=== PATIENT | male | born 1955 | race Caucasian/White ===

== ENCOUNTER 2017-03-13 18:32 | Emergency (ER) | payer BC ==
[2017-03-13] MEDS ORDERED: NS 1000 ML 1,000 ML ONE ×2 (18:40→19:48)
[2017-03-13 18:42] VITALS: BMI 30.5
[2017-03-13] MEDS: NS 1000 ML 1,000 ML IV ONE ×2 (18:47→19:52)
[2017-03-13 18:54] LABS: BASOPHILS # (AUTO) 0.1 X10^3/uL (0.0-0.1); BASOPHILS % (AUTO) 1.2 % (0.2-1.0); EOSINOPHILS # (AUTO) 0.4 x10^3/uL (0.0-0.2); EOSINOPHILS % (AUTO) 3.6 % (0.9-2.9); HEMATOCRIT 43.2 % (42.0-54.0); HEMOGLOBIN 14.6 g/dL (13.5-18.0); LYMPHOCYTES # (AUTO) 2.5 X10^3/uL (1.3-2.9); LYMPHOCYTES % (AUTO) 24.9 % (21.0-51.0); MEAN CORPUSCULAR HEMOGLOBIN 30.9 pg (27.0-34.0); MEAN CORPUSCULAR HGB CONC 33.7 g/dL (33.0-35.0); MEAN CORPUSCULAR VOLUME 91.8 fL (80.0-100.0); MEAN PLATELET VOLUME 8.9 fL (7.4-11.0); MONOCYTES # (AUTO) 0.7 x10^3/uL (0.3-0.8); MONOCYTES % (AUTO) 6.7 % (0.0-13.0); NEUTROPHILS # (AUTO) 6.4 x10^3/uL (2.2-4.8); NEUTROPHILS % (AUTO) 63.6 % (42.0-75.0); PLATELET COUNT 229 X10^3/uL (150.0-450.0); RED CELL DISTRIBUTION WIDTH 13.4 % (11.6-16.5)
--- NOTE | 2017-03-13 18:57 | DR.GENAD ---
HPI - PCP Primary Care Physician: DARCIE - Complaint/Symptoms Chief Complaint Doctors Comments: Patient states that he has been in atrial flutter since yesterday; today did not take his medication. 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 STARR AT [facility] - Source History Provided: Patient - Mode of Arrival Mode of Arrival: Ambulatory - Timing Onset of Chief Complaint: 03/13/17 PMH - PMH Past Medical History: Yes Past Medical History: COPD, Coronary Artery Disease, Dyslipidemia, GERD, Hypertension Past Surgical History: Yes Surgical History: Angioplasty/Stents, Tonsillectomy, Other - Family History History of Family Medical Conditions: Yes Family Medical History: Cancer, [place], Hypertension - Social History Alcohol Use: None Do you use any recreational Drugs:: No Lives With: Family Lives Where: Home - infectious screening In the last 2 months have you had wt loss of >10#?: NO Have you had fever, night sweats or hemotysis?: No Have you traveled outside the country in the last 6 months?: No Isolation: Standard ROS - Review of Systems Eyes: No Symptoms Reported ENTM: No Symptoms Reported Respiratoy: No Symptoms Reported Cardiovascular: No Symptoms Reported Gastrointestinal/Abdominal: No Symptoms Reported Genitourinary: No Symptoms Reported Neurological: No Symptoms Reported Musculoskeletal: No Symptoms Reported Integumentary: No Symptoms Reported Hematologic/Lymphatic: No Symptoms Reported Endocrine: No Symptoms Reported Psychiatric: No Symptoms Reported All Other Systems: Reviewed and Negative PE - Vital Signs Vitals: Temperature 96.7 F Pulse Rate 128 Respiratory Rate 18 Blood Pressure [Right Arm] 164/88 Blood Pressure 152/83 O2 Sat by Pulse Oximetry 99 - General Limitations: negative: Altered Mental Status General Appearance: Alert, In No Apparent Distress - Head Head Exam: Normal Inspection, Atraumatic - Eyes Eye exam: Normal Appearance, PERRL, EOMI - Neck Neck Exam: Normal Inspection, Full ROM - Chest Chest Inspection: Normal Inspection - Respiratory Respiratory Exam: Normal Lung Sounds Bilat Respiratory Exam: Bilateral Clear to Auscultation - Cardiovascular Cardiovascular Exam: Regular Rate, Normal Rhythm - Abdominal Exam Abdominal Exam: Normal Inspection, Normal Bowel Sounds Abdominal Tenderness: negative: RUQ, RLQ, LUQ, LLQ, Epigastrium, Suprapubic, Diffuse, Mild, Moderate, Severe, Other - Extremities Extremities Exam: Normal Inspection, Full ROM - Back Back Exam: Normal Inspection - Neurologic Neurological Exam: Alert, Oriented X3, CN II-XII Intact - Psychiatric Psychiatric Exam: Normal Affect - Skin Skin Exam: Warm, Dry, Intact Course - Treatment Treatment: s/p cardiyuridia de [place] patient converted to his usual rate 80s to 90s- - Reevaluation 1st: Improved - Consultation Called: 20:40 (Dr Sprague recommended increasing amiodarone to 200mg bid x 1 week then once daily thereafter.) ROR - Labs Reviewed Result Diagrams: 03/13/17 18:45 03/13/17 18:45 Laboratory: WBC 10.0 X10^3/uL (3.6-10.0) 03/13/17 18:45 RBC 4.70 X10^6/uL (4.7-6.0) 03/13/17 18:45 Hgb 14.6 g/dL (13.5-18.0) 03/13/17 18:45 Hct 43.2 % (42.0-54.0) 03/13/17 18:45 MCV 91.8 fL (80.0-100.0) 03/13/17 18:45 MCH 30.9 pg (27.0-34.0) 03/13/17 18:45 MCHC 33.7 g/dL (33.0-35.0) 03/13/17 18:45 RDW 13.4 % (11.6-16.5) 03/13/17 18:45 Plt Count 229 X10^3/uL (150.0-450.0) 03/13/17 18:45 MPV 8.9 fL (7.4-11.0) 03/13/17 18:45 Neut % 63.6 % (42.0-75.0) 03/13/17 18:45 Lymph % 24.9 % (21.0-51.0) 03/13/17 18:45 O'Brien % 6.7 % (0.0-13.0) 03/13/17 18:45 Eos % 3.6 % (0.9-2.9) H 03/13/17 18:45 Baso % 1.2 % (0.2-1.0) H 03/13/17 18:45 Neut # 6.4 x10^3/uL (2.2-4.8) H 03/13/17 18:45 Lymph # 2.5 X10^3/uL (1.3-2.9) 03/13/17 18:45 O'Brien # 0.7 x10^3/uL (0.3-0.8) 03/13/17 18:45 Eos # 0.4 x10^3/uL (0.0-0.2) H 03/13/17 18:45 Baso # 0.1 X10^3/uL (0.0-0.1) 03/13/17 18:45 Absolute Nucleated RBC 0.0 /100WBC 03/13/17 18:45 INR Target Range - 03/13/17 18:45 INR 1.17 (0.8-1.3) 03/13/17 18:45 PTT 36.0 SECONDS (22.9-36.5) 03/13/17 18:45 PTT Comment - 03/13/17 18:45 Sodium 140 mmol/L (136-145) 03/13/17 18:45 Corrected Sodium 140 mmol/L (136-145) 03/13/17 18:45 Potassium 3.7 mmol/L (3.5-5.1) 03/13/17 18:45 Chloride 104 mmol/L (98-107) 03/13/17 18:45 Carbon Dioxide 27.0 mmol/L (21-32) 03/13/17 18:45 BUN 11 mg/dL (7-18) 03/13/17 18:45 Creatinine 1.06 mg/dL (0.70-1.30) 03/13/17 18:45 Est GFR (MDRD) Af Amer > 60 (>60) 03/13/17 18:45 Est GFR (MDRD) Non-Af > 60 (>60) 03/13/17 18:45 Glucose 114 mg/dL (65-99) H 03/13/17 18:45 Calcium 9.3 mg/dL (8.5-10.1) 03/13/17 18:45 Corrected Calcium 9.9 mg/dL (8.5-10.1) 03/13/17 18:45 Magnesium 1.1 mg/dL (1.7-2.9) L 03/13/17 18:45 Total Bilirubin 0.30 mg/dL (0.2-1.0) 03/13/17 18:45 AST 26 Units/L (15-37) 03/13/17 18:45 ALT 30 Units/L (12-78) 03/13/17 18:45 Alkaline Phosphatase 66 Units/L (46-116) 03/13/17 18:45 Creatine Kinase 58 Units/L (39-308) 03/13/17 18:45 CK-MB (CK-2) 1.2 ng/mL (0-4.0) 03/13/17 18:45 CK/CKMB % Calc 2.1 % (<4) 03/13/17 18:45 Troponin I < 0.02 ng/mL (0-1.5) 03/13/17 18:45 Total Protein 7.2 g/dL (6.4-8.2) 03/13/17 18:45 Albumin 3.2 g/dL (3.4-5.0) L 03/13/17 18:45 Globulin 4.0 g/dL (2.5-4.5) 03/13/17 18:45 Albumin/Globulin Ratio 0.8 Ratio (1.1-2.1) L 03/13/17 18:45 - XRAY XRAY Interpreted by: Radiologist (Chest: pulmonary fibrosis no acute findings.) - Diagnosis Discharge Problem: Atrial flutter by electrocardiogram - Discharge Plan Condition: Stable - Follow ups/Referrals Follow ups/Referrals: BRIELLE SPRAGUE [Primary Care Provider] - 3 days - Instructions
[2017-03-13 19:17] LABS: BLOOD UREA NITROGEN 11 mg/dL (7-18); CALCIUM 9.3 mg/dL (8.5-10.1); CHLORIDE 104 mmol/L (98-107); COR NA(FOR HYPERGLY) 140 mmol/L (136-145); CREATININE 1.06 mg/dL (0.70-1.30); GLUCOSE 114 mg/dL (65-99); SODIUM 140 mmol/L (136-145); TROPONIN I < 0.02 ng/mL (0-1.5); eGFR BLACK RACES > 60 (>60); eGFR NON BLACK RACES > 60 (>60)
[2017-03-13 19:18] LABS: ALANINE AMINOTRANSFERASE 30 Units/L (12-78); ALBUMIN 3.2 g/dL (3.4-5.0); ALKALINE PHOSPHATASE 66 Units/L (46-116); ASPARTATE AMINO TRANSFERASE 26 Units/L (15-37); CKMB % 2.1 % (<4); COR CA(FOR HYPOALB) 9.9 mg/dL (8.5-10.1); CREATINE KINASE 58 Units/L (39-308); CREATINE KINASE MB 1.2 ng/mL (0-4.0); MAGNESIUM 1.1 mg/dL (1.7-2.9); TOTAL PROTEIN 7.2 g/dL (6.4-8.2)
[2017-03-13] MEDS ORDERED: CARDIZEM INJ 50 MG VIAL IVP ONE (19:33)
[2017-03-13] MEDS ORDERED: CARDIZEM INJ 50 MG VIAL ONE (19:35)
[2017-03-13] MEDS ORDERED: CARDIZEM INJ 125 MG VIAL 125 MG in NS 100 ML IV 100 ML IV PRN (19:46)
[2017-03-13] MEDS ORDERED: CARDIZEM INJ 125 MG VIAL ONE (19:47)
[2017-03-13] MEDS ORDERED: NS 100 ML IV + SPIKE MINIBAG* 100 ML IV ONE (19:48)
--- NOTE | 2017-03-13 19:55 | RAD ---
HISTORY: Chest pain Study: Single view of the chest. Comparison: 01/09/2017 Findings: The cardiomediastinal silhouette is normal. No focal consolidations, pleural effusions or pneumothor ax. Diffuse increased reticular markings, stable from prior. IMPRESSION: 1. Pulmonary fibrosis. No acute findings. Reported By:
[2017-03-13] MEDS ORDERED: NS 1000 ML 1,000 ML IV SCH (20:00)
[2017-03-13 21:28] VITALS: BP 135/88
== END 2017-03-13 21:19 | disposition home or self-care (01) ==
LOC: ER 18:34
DX: I48.3 Typical atrial flutter (principal)
CPT/HCPCS: 36415; 71010; 80053; 82550; 82553; 83735; 84484; 85025; 85610; 85730; 93005; 93010; 93041; 96365; 96367; 96374; 96375; 99283; A4222; J3490

== ENCOUNTER → 2017-04-08 | Outpatient (CLI) | payer BC ==
[2017-03-13 21:28] VITALS: BP 135/88
--- NOTE | 2017-04-08 12:15 | US ---
HISTORY: Bilateral neck masses Study: Soft tissue ultrasound of the neck Comparison: No priors Technique: go scale and color Doppler imaging of the neck is provided. Findings: Normal fatty and muscular tissues are seen. No cystic or solid mass is identified. Color Doppler [place] dies are normal. IMPRESSION: Unremarkable soft tissue ultrasound of the neck. Reported By:
== END ==
LOC: RAD 10:50
PROVIDERS: ATTEND Nurse Practitioner Family
DX: R22.1 Localized swelling, mass and lump, neck (principal)
CPT/HCPCS: 76536

== ENCOUNTER 2017-10-13 07:07 | Day surgery (SDC) | payer BC ==
[2017-10-13] MEDS ORDERED: D5 LR 1000 ML 1,000 ML IV ONE (07:18)
[2017-10-13] MEDS ORDERED: DIPRIVAN VIAL ONE (10:03)
[2017-10-13 10:51] VITALS: BP 129/82
== END 2017-10-13 09:25 | disposition home or self-care (01) ==
LOC: SURG1 07:07
PROVIDERS: ATTEND Internal Medicine Gastroenterology
PROC: 0DB58ZX Excision of Esophagus, Via Natural or Artificial Opening Endoscopic, Diagnostic (ICD-10-PCS; principal; 2017-10-13 15:30)
PROC: 0DJ08ZZ Inspection of Upper Intestinal Tract, Via Natural or Artificial Opening Endoscopic (ICD-10-PCS; principal; 2017-10-13 15:30)
DX: K21.9 Gastro-esophageal reflux disease without esophagitis (principal); R13.19 Other dysphagia; Z87.19 Personal history of other diseases of the digestive system; K22.4 Dyskinesia of esophagus; K29.60 Other gastritis without bleeding
CPT/HCPCS: A4217; J3490; J7120

== ENCOUNTER → 2018-02-13 | Outpatient (CLI) | payer BC ==
--- NOTE | 2018-02-13 13:26 | RAD ---
Exam: Chest two views History: 62-year-old male with cough and elevated white blood cell count. Comparison: Previous chest radiograph from 03/13/2017. Findings: Heart size and pulmonary vasculature are stable. Diffuse increased reticular markings are again noted bilaterally. These findings are unchanged when compared to the previous exam. No evidence of acute s uperimposed infiltrate or significant effusion on either side. On the lateral view, flattening of the hemidiaphragms consistent with hyperinflation related to underlying COPD. Impression: COPD with chronic interstitial scarring. Findings have not changed significantly since th e previous exam in 2017. No acute superimposed abnormality is seen on this study. Reported By:
== END ==
LOC: RAD 12:26
PROVIDERS: ATTEND Internal Medicine
DX: D72.828 Other elevated white blood cell count (principal); J44.9 Chronic obstructive pulmonary disease, unspecified
CPT/HCPCS: 71046